=== PATIENT | male | born 1995 | race Two or more races ===

== ENCOUNTER 2017-06-14 06:58 | Emergency (ER) | payer MEDICAID ==
[~2017-06-14] VITALS: Ht 167.6 cm; Wt 68.0 kg
[2017-06-14 07:54] LABS: Basophils # (auto) 0 uL; Basophils % (auto) 0.4 % (0.0-2.0); CONDITION Y; Eosinophils # (auto) 0.1 uL; Eosinophils % (auto) 0.8 % (0.0-7.0); Hematocrit 43.9 % (41.0-53.0); Hemoglobin 15.3 g/dL (13.5-17.5); Lymphocytes # (auto) 1.5 uL; Lymphocytes % (auto) 17.7 % (10.0-50.0); Mean Corpuscular Hemoglobin 31.7 pg (28.0-32.0); Mean Corpuscular Hgb Conc. 34.9 g/dL (32.0-36.0); Mean Corpuscular Volume 90.8 fL (80.0-100.0); Mean Platelet Volume 7.6 fL (7.4-10.4); Monocytes # (auto) 0.3 uL; Monocytes % (auto) 3.5 % (0.0-12.0); Neutrophils # (auto) 6.7 uL; Neutrophils % (auto) 77.6 % (37.0-80.0); Platelet Count (auto) 341 10^3/uL (140-450); Red Cell Distribution Width 12.4 % (11.6-16.0); White Blood Cell 8.6 10^3/uL (4.4-10.8)
[2017-06-14 08:08] LABS: BUN/Creatinine Ratio 10.8; Calcium 8.5 mg/dL (8.5-10.1); Potassium 4.3 mmol/L (3.5-5.1)
[2017-06-14 08:46] LABS: Urine Bilirubin Negative (Negative); Urine Blood Negative /uL (Negative); Urine Color Yellow (Yellow); Urine Glucose Normal (Normal); Urine Ketone Negative (Negative); Urine Nitrite Negative (Negative); Urine RBC 6 /hpf (0 - 3); Urine Urobilinogen Normal (Negative)
[2017-06-14 09:30] VITALS: BP 114/67
== END 2017-06-14 09:31 | disposition home or self-care (01) ==
LOC: EDBD 06:58 → ER 07:11
DX: F10.10 Alcohol abuse, uncomplicated (principal); F12.10 Cannabis abuse, uncomplicated; F13.10 Sedative, hypnotic or anxiolytic abuse, uncomplicated
CPT/HCPCS: 36415; 80048; 80307; 80320; 81001; 85025

== ENCOUNTER 2017-08-11 14:10 | Emergency (ER) | payer MEDICAID ==
[~2017-08-11] VITALS: Ht 167.6 cm; Wt 56.7 kg
[2017-08-11 15:26] LABS: Basophils # (auto) 0 uL; Basophils % (auto) 0.5 % (0.0-2.0); Eosinophils # (auto) 0.1 uL; Eosinophils % (auto) 1.4 % (0.0-7.0); Hematocrit 46.9 % (41.0-53.0); Hemoglobin 16.2 g/dL (13.5-17.5); Lymphocytes # (auto) 2.2 uL; Mean Corpuscular Hemoglobin 31.5 pg (28.0-32.0); Mean Corpuscular Hgb Conc. 34.5 g/dL (32.0-36.0); Mean Corpuscular Volume 91.2 fL (80.0-100.0); Mean Platelet Volume 7.3 fL (6.9-10.8); Monocytes # (auto) 0.4 uL; Monocytes % (auto) 6.9 % (0.0-12.0); Neutrophils % (auto) 52.2 % (37.0-80.0); Nucleated Red Blood Cells % 0.3 %; Platelet Count (auto) 304 10^3/uL (140-450); Red Cell Distribution Width 12.6 % (11.8-14.3); White Blood Cell 5.7 10^3/uL (4.4-10.8)
[2017-08-11 15:53] LABS: Albumin 4.5 g/dL (3.4-5.0); Alkaline Phosphatase 115 U/L (45-117); Anion Gap 8 (5-15); Aspartate Aminotransferase 16 U/L (15-37); Bilirubin, Total 3.2 mg/dL (0.2-1.0); Blood Urea Nitrogen 8 mg/dL (7-18); Calcium 7.4 mg/dL (8.5-10.1); Carbon Dioxide 25 mmol/L (21-32); Chloride 108 mmol/L (98-107); GFR African American 119 mL/min; GFR Non-African American 98 mL/min; Glucose 86 mg/dL (74-106); Potassium 3.5 mmol/L (3.5-5.1); Sodium 141 mmol/L (136-145); Total Protein 7.9 g/dL (6.4-8.2)
[2017-08-11 16:57] VITALS: BP 121/45
== END 2017-08-11 17:33 | disposition home or self-care (01) ==
LOC: ER 14:10
DX: F41.9 Anxiety disorder, unspecified (principal); R07.89 Other chest pain; F17.210 Nicotine dependence, cigarettes, uncomplicated
CPT/HCPCS: 36415; 71010; 80053; 84484; 85025; 93005

== ENCOUNTER 2018-02-01 12:52 | Emergency (ER) | payer MEDICAID, OTHER ==
[~2018-02-01] VITALS: Ht 165.1 cm; Wt 59.0 kg
[2018-02-01 14:08] VITALS: BP 120/83
== END 2018-02-01 14:10 | disposition home or self-care (01) ==
LOC: ER 12:57
DX: J02.9 Acute pharyngitis, unspecified (principal); F17.210 Nicotine dependence, cigarettes, uncomplicated; F12.10 Cannabis abuse, uncomplicated

== ENCOUNTER 2020-08-22 03:56 | Inpatient (IN) | payer MEDICAID, OTHER ==
[~2020-08-22] VITALS: Ht 165.1 cm; Wt 58.4 kg
[2020-08-22 05:05] LABS: Basophils # (auto) 0 10 ^3/uL (0-0.2); Basophils % (auto) 0.1 % (0.0-2.0); Eosinophils # (auto) 0 10 ^3/uL (0-0.8); Eosinophils % (auto) 0.2 % (0.0-7.0); Hematocrit 51.3 % (41.0-53.0); Hemoglobin 16.9 g/dL (13.5-17.5); Lymphocytes # (auto) 0.7 10 ^3/uL (0.4-5.4); Lymphocytes % (auto) 3.4 % (10.0-50.0); Mean Corpuscular Volume 93.9 fL (80.0-100.0); Monocytes # (auto) 1.1 10 ^3/uL (0-1.3); Neutrophils # (auto) 19.6 10 ^3/uL (1.6-8.6); Neutrophils % (auto) 91.3 % (37.0-80.0); Nucleated Red Blood Cells % 0.1 %; Platelet Count (auto) 397 10^3/uL (140-450); Red Blood Cells 5.46 10^6/uL (4.5-5.90); Red Cell Distribution Width 12.8 % (11.8-14.3); White Blood Cell 21.4 10^3/uL (4.4-10.8)
[2020-08-22 05:27] LABS: Salicylate < 1.7 mg/dL (2.8-20.0)
[2020-08-22 05:30] LABS: Albumin 4.4 g/dL (3.4-5.0); Calcium 8.9 mg/dL (8.5-10.1); Potassium 4.1 mmol/L (3.5-5.1)
[2020-08-22 05:33] LABS: BUN/Creatinine Ratio 6.5; Total Protein 8.1 g/dL (6.4-8.2)
[2020-08-22 05:37] LABS: Acetaminophen < 2.0 ug/mL (10-30)
[2020-08-22] MEDS ORDERED: DEXTROSE (50%) 50ML SYRG IV ONE (05:45)
[2020-08-22 07:10] LABS: Urine Bacteria MANY /hpf (None Seen); Urine Blood 1+ /uL (Negative); Urine Mucus FEW (None Seen); Urine Specific Gravity 1.012 (1.001-1.035); Urine Sperm PRESENT /hpf (None Seen); Urine WBC 5 /hpf (0 - 3)
[2020-08-22] MEDS ORDERED: SODIUM CHLORIDE 0.9% 1,000 ML IV ONE ×2 (07:15→08:45)
[2020-08-22 07:20] LABS: Alcohol, Urine < 3.0 mg/dL (0-10); Amphetamine Screen, Urine NEGATIVE (NEGATIVE); Barbiturate Scree,Urine NEGATIVE (NEGATIVE); Benzodiazephine Screen, Urine POSITIVE (NEGATIVE); Cannabinoid Screen, Urine POSITIVE (NEGATIVE); Cocaine Screen, Urine NEGATIVE (NEGATIVE); Opiate Scree,Urine NEGATIVE (NEGATIVE); Phencyclidine Screen, Urine NEGATIVE (NEGATIVE)
[2020-08-22] MEDS ORDERED: cefTRIAXone 1GM/50ML D5W 50 ML IV ONE (08:45)
[2020-08-22 09:18] LABS: INR 1.07 (0.9-1.15)
[2020-08-22 09:22] LABS: Lactic Acid w/Reflex 2.4 mmol/L (0.4-2.0)
[2020-08-22 09:22] LABS: Magnesium 2.8 mg/dL (1.6-2.6)
[2020-08-22] MEDS ORDERED: MORPHINE SULF INJ 2 MG/ML SYRINGE 1ML IV PRN (11:15)
[2020-08-22] MEDS ORDERED: NITROGLYCERIN 0.4 MG SL TAB SL PRN (11:15)
[2020-08-22] MEDS ORDERED: ONDANSETRON HCL 4 MG/2 ML VIAL IV PRN (11:15)
[2020-08-22 11:20] LABS: Albumin 3.7 g/dL (3.4-5.0); Calcium 8.1 mg/dL (8.5-10.1)
[2020-08-22 11:22] LABS: Bilirubin, Total 1.4 mg/dL (0.2-1.0); Total Protein 6.7 g/dL (6.4-8.2)
[2020-08-22] MEDS: D5W/SOD CHL 0.45% 1,000 ML IV SCH ×2 (11:41→21:19)
[2020-08-22 11:48] LABS: Potassium 5.6 mmol/L (3.5-5.1)
[2020-08-22] MEDS ORDERED: SODIUM BICARBONATE 8.4 % INJ 50ML VIAL IV ONE (14:00)
[2020-08-22] MEDS ORDERED: SODIUM ZIRCONIUM CYCL 10 GM PAK PO ONE (14:00)
[2020-08-23 05:35] LABS: Basophils # (auto) 0 10 ^3/uL (0-0.2); Basophils % (auto) 0.4 % (0.0-2.0); Eosinophils # (auto) 0.1 10 ^3/uL (0-0.8); Eosinophils % (auto) 0.6 % (0.0-7.0); Hemoglobin 14.5 g/dL (13.5-17.5); Lymphocytes # (auto) 1.8 10 ^3/uL (0.4-5.4); Lymphocytes % (auto) 14.9 % (10.0-50.0); Mean Corpuscular Hemoglobin 31.3 pg (28.0-32.0); Mean Corpuscular Hgb Conc. 34.5 g/dL (32.0-36.0); Mean Corpuscular Volume 90.8 fL (80.0-100.0); Monocytes # (auto) 0.8 10 ^3/uL (0-1.3); Neutrophils # (auto) 9.2 10 ^3/uL (1.6-8.6); Neutrophils % (auto) 77.1 % (37.0-80.0); Nucleated Red Blood Cells % 0.1 %; Platelet Count (auto) 305 10^3/uL (140-450); Red Blood Cells 4.63 10^6/uL (4.5-5.90); Red Cell Distribution Width 12.5 % (11.8-14.3)
[2020-08-23 05:52] LABS: Potassium 3.5 mmol/L (3.5-5.1)
[2020-08-23 05:57] LABS: BUN/Creatinine Ratio 9.4; Calcium 8.4 mg/dL (8.5-10.1)
[2020-08-23] MEDS: D5W/SOD CHL 0.45% 1,000 ML IV SCH (07:15)
[2020-08-23 08:21] VITALS: BP 132/72
[2020-08-23 09:00] VITALS: BP 132/77
[2020-08-23] MEDS ORDERED: cefTRIAXone 1GM/50ML D5W 50 ML IV SCH (09:00)
[2020-08-23] MEDS: ENOXAPARIN SOD 40 MG/0.4 ML SYRINGE SC SCH (10:00)
[2020-08-23 10:09] LABS: Hepatitis A Ab IgM Negative
[2020-08-23 10:10] LABS: Hepatitis B Core IgM Negative; Hepatitis B Surface Antigen Negative (Negative); Hepatitis C Antibody Negative (Negative)
[2020-08-23] MEDS: PANTOPRAZOLE 40 MG/10 ML VIAL INJ IV SCH (10:38)
[2020-08-23 13:00] VITALS: BP 130/94
[2020-08-23] MEDS ORDERED: IOHEXOL 350 MG/ML 100ML IJ ONE (14:12)
[2020-08-23 17:00] VITALS: BP 128/75
[2020-08-24 05:00] VITALS: BP 135/78
[2020-08-24 06:29] LABS: Basophils # (auto) 0.1 10 ^3/uL (0-0.2); Basophils % (auto) 0.6 % (0.0-2.0); Eosinophils # (auto) 0 10 ^3/uL (0-0.8); Eosinophils % (auto) 0.3 % (0.0-7.0); Hematocrit 44.2 % (41.0-53.0); Hemoglobin 15.6 g/dL (13.5-17.5); Lymphocytes # (auto) 1.6 10 ^3/uL (0.4-5.4); Mean Corpuscular Hemoglobin 31.8 pg (28.0-32.0); Mean Corpuscular Hgb Conc. 35.2 g/dL (32.0-36.0); Mean Corpuscular Volume 90.3 fL (80.0-100.0); Monocytes # (auto) 0.8 10 ^3/uL (0-1.3); Monocytes % (auto) 6.8 % (0.0-12.0); Neutrophils # (auto) 8.8 10 ^3/uL (1.6-8.6); Neutrophils % (auto) 78.3 % (37.0-80.0); Platelet Count (auto) 327 10^3/uL (140-450); Red Cell Distribution Width 12.5 % (11.8-14.3); White Blood Cell 11.2 10^3/uL (4.4-10.8)
[2020-08-24 06:58] LABS: Albumin 3.6 g/dL (3.4-5.0); BUN/Creatinine Ratio 6.7; Bilirubin, Direct 0.3 mg/dL (0-0.2); Bilirubin, Total 0.9 mg/dL (0.2-1.0); Calcium 8.6 mg/dL (8.5-10.1); Total Protein 6.7 g/dL (6.4-8.2)
[2020-08-24 09:00] VITALS: BP 115/69
[2020-08-24] MEDS: PANTOPRAZOLE 40 MG/10 ML VIAL INJ IV SCH (11:03)
[2020-08-24] MEDS: ENOXAPARIN SOD 40 MG/0.4 ML SYRINGE SC SCH (11:03)
[2020-08-24 13:00] VITALS: BP 116/73
[2020-08-24 17:49] VITALS: BP 116/73
[2020-08-24] MEDS ORDERED: SACU1TAB PO (18:07)
[2020-08-24] MEDS ORDERED: DAPA1TAB4 PO (18:07)
[2020-08-24] MEDS ORDERED: CAR3125T PO (18:07)
[2020-08-24 21:30] VITALS: BP 128/75
[2020-08-24] MEDS: SACUBITRIL-VALSARTAN 24mg/26mg TAB PO SCH (21:32)
[2020-08-24] MEDS: CARVEDILOL 3.125 MG TAB PO SCH (21:33)
[2020-08-25] VITALS (7 sets, daily range): BP systolic 113–134; BP diastolic 65–85
[2020-08-25 06:04] LABS: Albumin 3.8 g/dL (3.4-5.0); Potassium 3.9 mmol/L (3.5-5.1)
[2020-08-25 06:08] LABS: BUN/Creatinine Ratio 8.9; Bilirubin, Total 1.1 mg/dL (0.2-1.0); Total Protein 6.9 g/dL (6.4-8.2)
[2020-08-25] MEDS: ENOXAPARIN SOD 40 MG/0.4 ML SYRINGE SC SCH (10:06)
[2020-08-25] MEDS: CARVEDILOL 3.125 MG TAB PO SCH ×2 (10:06→22:30)
[2020-08-25] MEDS: PANTOPRAZOLE 40 MG/10 ML VIAL INJ IV SCH (10:07)
[2020-08-25] MEDS: DAPAGLIFLOZIN 5 MG TAB PO SCH (10:07)
[2020-08-25] MEDS: SACUBITRIL-VALSARTAN 24mg/26mg TAB PO SCH ×2 (10:07→22:30)
[2020-08-26 05:00] VITALS: BP 107/70
[2020-08-26 08:28] VITALS: BP 120/70
[2020-08-26] MEDS: PANTOPRAZOLE 40 MG/10 ML VIAL INJ IV SCH (08:59)
[2020-08-26] MEDS: SACUBITRIL-VALSARTAN 24mg/26mg TAB PO SCH (08:59)
[2020-08-26] MEDS: DAPAGLIFLOZIN 5 MG TAB PO SCH (08:59)
[2020-08-26] MEDS: CARVEDILOL 3.125 MG TAB PO SCH (09:00)
[2020-08-26] MEDS: ENOXAPARIN SOD 40 MG/0.4 ML SYRINGE SC SCH (09:00)
[2020-08-26 13:09] VITALS: BP 111/70
== END 2020-08-26 14:30 | disposition home or self-care (01) | DRG 812 ==
LOC: EDBD 03:56 → ER 04:00 → TELE 04:01 → TELE-WESTW 08-23 07:54
PROVIDERS: ADMIT Nurse Practitioner Acute Care; ATTEND Internal Medicine Pulmonary Disease
DX: T40.2X1A Poisoning by other opioids, accidental (unintentional), initial encounter (principal); I21.A1 Myocardial infarction type 2; N17.0 Acute kidney failure with tubular necrosis; G92 Toxic encephalopathy; E87.5 Hyperkalemia; I42.7 Cardiomyopathy due to drug and external agent; E83.51 Hypocalcemia; I50.9 Heart failure, unspecified; F12.90 Cannabis use, unspecified, uncomplicated; F14.10 Cocaine abuse, uncomplicated; F17.210 Nicotine dependence, cigarettes, uncomplicated; E16.2 Hypoglycemia, unspecified; B17.9 Acute viral hepatitis, unspecified; N18.9 Chronic kidney disease, unspecified; Z79.899 Other long term (current) drug therapy; Y92.89 Other specified places as the place of occurrence of the external cause
CPT/HCPCS: 36415; 71046; 71275; 74176; 80048; 80053; 80074; 80076; 80307; 80329; 81001; 82550; 82962; 83605; 83690; 83735; 84132; 84443; 84484; 85025; 85379; 85610; 85730; 87040; 87086; 93005; 93306; 96361; 96374; 96375; 99291; C9113; G0378; J0696

== ENCOUNTER 2021-02-09 12:55 | Emergency (ER) | payer OTHER ==
[~2021-02-09] VITALS: Ht 167.6 cm; Wt 61.2 kg
[~2021-02-09 12:55] MED LIST: CAR3125T PO; DAPA1TAB4 PO; SACU1TAB PO
[2021-02-09] MEDS ORDERED: SODIUM CHLORIDE 0.9% 1,000 ML IVB ONE (14:00)
[2021-02-09 15:16] LABS: Basophils # (auto) 0 10 ^3/uL (0-0.2); Basophils % (auto) 0.1 % (0.0-2.0); Eosinophils # (auto) 0 10 ^3/uL (0-0.8); Eosinophils % (auto) 0.1 % (0.0-7.0); Hematocrit 42.5 % (41.0-53.0); Hemoglobin 14.6 g/dL (13.5-17.5); Lymphocytes # (auto) 0.9 10 ^3/uL (0.4-5.4); Lymphocytes % (auto) 6.1 % (10.0-50.0); Mean Corpuscular Hemoglobin 31.3 pg (28.0-32.0); Mean Corpuscular Hgb Conc. 34.2 g/dL (32.0-36.0); Mean Corpuscular Volume 91.4 fL (80.0-100.0); Monocytes # (auto) 1.1 10 ^3/uL (0-1.3); Monocytes % (auto) 7.5 % (0.0-12.0); Neutrophils # (auto) 12.3 10 ^3/uL (1.6-8.6); Neutrophils % (auto) 86.2 % (37.0-80.0); Nucleated Red Blood Cells % 0.1 %; Platelet Count (auto) 341 10^3/uL (140-450); Red Blood Cells 4.65 10^6/uL (4.5-5.90); Red Cell Distribution Width 12.2 % (11.8-14.3); White Blood Cell 14.2 10^3/uL (4.4-10.8)
[2021-02-09 15:49] LABS: Anion Gap 6 (5-15); Blood Alcohol < 3.0 mg/dL (0-5); Blood Urea Nitrogen 8 mg/dL (7-18); Carbon Dioxide 27 mmol/L (21-32); Chloride 105 mmol/L (98-107); Glucose 105 mg/dL (74-106); Magnesium 2.5 mg/dL (1.6-2.6); Potassium 3.6 mmol/L (3.5-5.1); Sodium 138 mmol/L (136-145)
[2021-02-09 15:51] LABS: Alanine Aminotransferase 24 U/L (16-61); Alkaline Phosphatase 64 U/L (45-117); Aspartate Aminotransferase 16 U/L (15-37); BUN/Creatinine Ratio 7.8; Bilirubin, Total 1.6 mg/dL (0.2-1.0); GFR African American 111 mL/min; GFR Non-African American 92 mL/min; Salicylate < 1.7 mg/dL (2.8-20.0); Total Protein 6.9 g/dL (6.4-8.2)
[2021-02-09 16:08] LABS: Acetaminophen < 2.0 ug/mL (10-30)
[2021-02-09 17:29] LABS: Alcohol, Urine < 3.0 mg/dL (0-10); Amphetamine Screen, Urine NEGATIVE (NEGATIVE); Barbiturate Scree,Urine NEGATIVE (NEGATIVE); Benzodiazephine Screen, Urine POSITIVE (NEGATIVE); Cannabinoid Screen, Urine POSITIVE (NEGATIVE); Cocaine Screen, Urine NEGATIVE (NEGATIVE); Opiate Scree,Urine NEGATIVE (NEGATIVE); Phencyclidine Screen, Urine NEGATIVE (NEGATIVE)
[2021-02-09 17:41] VITALS: BP 94/51
[2021-02-09 17:41] LABS: Urine Bacteria NONE SEEN /hpf (None Seen); Urine Blood Negative /uL (Negative); Urine Hyaline Cast FEW /lpf (0 - 2); Urine Mucus FEW (None Seen); Urine Specific Gravity 1.012 (1.001-1.035); Urine WBC 1 /hpf (0 - 3)
== END 2021-02-09 18:44 | disposition home or self-care (01) ==
LOC: EDBD 12:55 → ER 12:55
DX: T40.7X1A Poisoning by cannabis (derivatives), accidental (unintentional), initial encounter (principal); K04.7 Periapical abscess without sinus; R41.0 Disorientation, unspecified; R07.9 Chest pain, unspecified; F17.210 Nicotine dependence, cigarettes, uncomplicated; Y92.89 Other specified places as the place of occurrence of the external cause
CPT/HCPCS: 36415; 71045; 80053; 80307; 80320; 80329; 81001; 83735; 85025; 96360; 99285; J7030